=== PATIENT | female | born 1995 | race Caucasian/White ===

== ENCOUNTER 2018-05-28 20:45 | Inpatient (IN) | END 2018-05-29 21:25 | disposition home or self-care (01) | DRG 778 ==

== ENCOUNTER 2018-05-30 06:48 | Outpatient (CLI) | END 2018-05-30 08:10 | disposition home or self-care (01) ==

== ENCOUNTER 2018-06-04 09:42 | Outpatient (CLI) | END 2018-06-04 14:22 | disposition home or self-care (01) ==